=== PATIENT | female | born 2000 | race African-American/Black ===

== ENCOUNTER 2022-05-10 18:35 | Emergency (ER) | payer MEDICAID, OTHER ==
[~2022-05-10] VITALS: Ht 167.6 cm; Wt 91.8 kg
[2022-05-10 19:23] VITALS: BP 149/115
[2022-05-10] MEDS ORDERED: IPRATROPIUM BROM 0.5 MG/2.5ML INH SOL NEB ONE (19:45)
[2022-05-10] MEDS ORDERED: ALBUTEROL SULF 2.5 MG/0.5ML(0.5%) NEB SOLN NEB ONE (19:45)
== END 2022-05-11 00:23 | disposition left against medical advice (07) ==
LOC: ER 18:35
DX: J45.909 Unspecified asthma, uncomplicated (principal); Z53.21 Procedure and treatment not carried out due to patient leaving prior to being seen by health care provider
CPT/HCPCS: 94640; J7644